=== PATIENT | male | born 1950 | race Caucasian/White ===

== ENCOUNTER 2021-06-13 08:54 | Day surgery (SDC) | payer MEDICARE, BC ==
[~2021-06-13 08:54] MED LIST: Acetaminophen 325 MG Tab PO SCH; Lidocaine 1%/Sod Bicarbonate in NS 8.4% 1 ML Syringe IDERM PRN; Morphine 8 MG, EPINEPHrine 0.3 MG, Cefuroxime 750 MG, Ketorolac 30 MG, Sodium Chloride ... PRN; Pregabalin 25 MG Cap PO SCH; Sodium Chloride 0.9% 10 ML Syringe FLUSH PRN; oxyCODONE ER 10 MG TAB.ER PO SCH
[2021-06-13] MEDS: Lactated Ringers 1,000 ML IV SCH ×2 (09:08→13:39)
[2021-06-13] MEDS ORDERED: Triamcinolone Acetonide 40 MG/ML 1 ML SDV ONE (10:03)
[2021-06-13] MEDS ORDERED: Bupivacaine 0.25% 10 ML SDV ONE (10:03)
[2021-06-13] MEDS ORDERED: Vancomycin 1 GM SDV ONE (10:03)
--- NOTE | 2021-06-13 10:31 | PCM.PREANE ---
Preanesthetic Assessment - Procedure Proposed Procedure: Left TKR - Anesthesia/Transfusion/Family Hx Anesthesia History: Prior Anesthesia Without Reaction Transfusion History: No Prior Transfusion(s) - Review of Systems General: No Symptoms Pulmonary: No Symptoms Cardiovascular: No Symptoms Gastrointestinal: No Symptoms Neurological: No Symptoms Other: Reports: None - Physical Assessment NPO Status Date: 06/12/21 NPO Status Time: 22:00 Height: 1.73 m Weight: 78.018 kg ASA Class: 2 Mental Status: Alert & Oriented x3 Airway Class: Mallampati = 2 Dentition: Reports: Implants (lower), Missing Tooth/Teeth (upper), Caries Thyro-Mental Finger Breadths: 3 Mouth Opening Finger Breadths: 3 ROM/Head Extension: Full Lungs: Clear to Auscultation, Normal Respiratory Effort Cardiovascular: Regular Rate, Regular Rhythm - Allergies Allergies/Adverse Reactions: Allergies Allergy/AdvReac Type Severity Reaction Status Date / Time No Known Allergies Allergy Verified 06/07/21 15:59 - Acknowledgements Anesthesia Type Planned: Spinal, Regional Block Pt an Appropriate Candidate for the Planned Anesthesia: Yes Alternatives and Risks of Anesthesia Discussed w Pt/Guardian: Yes Pt/Guardian Understands and Agrees with Anesthesia Plan: Yes PreAnesthesia Questionnaire HEENT History: Reports: Hard of Hearing Cardiovascular History: Reports: High Cholesterol Respiratory History: Reports: Sleep Apnea (not using CPAP currently) Musculoskeletal History: Reports: Arthritis Endocrine/Metabolic History: Reports: Diabetes, Type II Dermatologic History: Reports: Other (See Below) Other Dermatologic History: Impetigo - Past Surgical History GI Surgical History: Reports: Colonoscopy - SUBSTANCE USE Tobacco Use Status *Q: Never Tobacco User Recreational Drug Use History: No - HOME MEDS Home Medications: Home Meds Aspirin [Aspirin EC] 325 mg PO BID #60 tab 06/12/21 [Rx] Cholecalciferol (Vitamin D3) [Vitamin D] 1 tab PO DAILY 06/12/21 [History] Cyclobenzaprine [Flexeril] 10 mg PO BID PRN #20 tab 06/12/21 [Rx] Fish Oil/Preston-3 Fatty Acids [Fish Oil 1,000 MG] 1 cap PO DAILY 06/12/21 [History] Glucosam/Chond/Collagen/Hyalur [Glucosamine Chondroitin] 1 cap PO DAILY 06/12/21 [History] Multivitamin 1 tab PO DAILY 06/12/21 [History] Rosuvastatin [Crestor] 10 mg PO DAILY 06/12/21 [History] oxyCODONE 5 - 10 mg PO Q4H PRN #40 tab 06/12/21 [Rx] sitaGLIPtin Phos/Metformin HCl [Janumet Xr 100-1,000 mg Tablet] 1 tab PO BID 06/12/21 [History] - CURRENT (IN HOUSE) MEDS Current Meds: Current Medications Acetaminophen (Acetaminophen 325 Mg Tab) 975 mg PO ONETIME ASAF Stop: 06/13/21 16:00 Last Admin: 06/13/21 09:18 Dose: 975 mg Documented by: Morphine Sulfate 8 mg/Epinephrine HCl 0.3 mg/Cefuroxime Sodium 750 mg/Ketorolac Tromethamine 30 mg/Sodium Chloride 7.9 ml 0 mg .XX ASDIRECTED PRN PRN Reason: Pain Stop: 06/13/21 16:00 Lactated Ringer's (Ringers, Lactated) 1,000 mls @ 125 mls/hr IV ASDIRECTED ASAF Stop: 06/13/21 23:00 Last Admin: 06/13/21 09:08 Dose: 125 mls/hr Documented by: Lidocaine/Sodium Bicarbonate (Lidocaine 1%/Sod Bicarbonate In Ns 8.4% 1 Ml Syringe) 0.25 ml IDERM ONETIME PRN PRN Reason: Prior to IV Start Stop: 06/13/21 18:00 Oxycodone HCl (Oxycodone Er 10 Mg Tab.Er) 10 mg PO ONETIME ASAF Stop: 06/13/21 16:00 Last Admin: 06/13/21 09:18 Dose: 10 mg Documented by: Pregabalin (Pregabalin 25 Mg Cap) 50 mg PO ONETIME ASAF Stop: 06/13/21 16:00 Last Admin: 06/13/21 09:18 Dose: 50 mg Documented by: Sodium Chloride (Sodium Chloride 0.9% 10 Ml Syringe) 10 ml FLUSH ASDIRECTED PRN PRN Reason: Keep Vein Open Stop: 06/13/21 18:00 Discontinued Medications Bupivacaine HCl (Bupivacaine 0.25% 10 Ml Sdv) Confirm Administered Dose 10 ml .ROUTE .STK-MED ONE Stop: 06/13/21 10:04 Morphine Sulfate 8 mg/Epinephrine HCl 0.3 mg/Cefuroxime Sodium 750 mg/Ketorolac Tromethamine 30 mg/Sodium Chloride 7.9 ml 0 mg .XX ASDIRECTED PRN PRN Reason: Pain Tranexamic Acid (Tranexamic Acid 1,000 Mg/10 Ml Amp) Confirm Administered Dose 1,000 mg .ROUTE .STK-MED ONE Stop: 06/13/21 10:04 Triamcinolone Acetonide (Triamcinolone Acetonide 40 Mg/Ml 1 Ml Sdv) Confirm Administered Dose 80 mg .ROUTE .STK-MED ONE Stop: 06/13/21 10:04 Vancomycin HCl (Vancomycin 1 Gm Sdv) Confirm Administered Dose 1 gm .ROUTE .STK- MED ONE Stop: 06/13/21 10:04
[2021-06-13] MEDS ORDERED: Lidocaine 1% 4 ML ONE (10:44)
[2021-06-13] MEDS ORDERED: fentaNYL 100 MCG/2 ML SDV ONE (10:44)
[2021-06-13] MEDS ORDERED: Propofol 200 MG/20 ML SDV ONE (10:45)
[2021-06-13] MEDS ORDERED: ceFAZolin 1 GM Vial ONE (10:48)
[2021-06-13] MEDS ORDERED: Midazolam 1 MG/ML 2 ML SDV ONE (10:49)
[2021-06-13] MEDS ORDERED: Dexmedetomidine 200 MCG/2 ML SDV ONE (11:10)
[2021-06-13] MEDS ORDERED: Dexamethasone 4 MG/ML 5 ML MDV ONE (11:10)
[2021-06-13] MEDS ORDERED: Ropivacaine 0.5% 5 MG/ML 30 ML SDV ONE (11:21)
--- NOTE | 2021-06-13 11:47 | PCM.PRNOTE ---
- Free Text/Narrative Note: Postoperative regional pain control requested by surgeon. Pre-op Dx: Lt knee osteoarthritis. Post-op Rx: Total Lt knee arthroplasty. Procedure: Lt Adductor canal block with U/S guidance Requesting physician: Dr. Tanner Carcamo Risks and benefits discussed with the patient preoperatively including infection, bleeding, incomplete or failed block, possible nerve damage, local anesthetic toxicity. Permit signed. Patient after spinal anesthesia post surgery in PACU, stable , alert and awake. Time out performed. Right mid-thigh was prepped with Chloraprep x 1 and allowed to dry. Under aseptic technique, the left femoral artery and sartorius muscle were identified under ultrasound prior to needle insertion. 4" Stimuplex needle #21 G was inserted under US guidance. Under direct visualization of needle tip the injection of 0.5% Ropivacaine with mixed with 1:200k epinephrine, 40 mcg of Dexmedetomidine and 6 mg of Dexamethasone total of 30 mls in divided doses, maintaining negative aspiration was completed without problems. No local anesthetic toxicity was noted. Patient is awake, stable and tolerated the procedure well. Time: 13:05 - 13:10 Please see attached U/S pictures.
--- NOTE | 2021-06-13 14:34 | PCM.POSTAN ---
POST ANESTHESIA ASSESSMENT - MENTAL STATUS Mental Status: Alert, Oriented - VITAL SIGNS Vital Signs: Postop Vital Signs 127/79 56 94% 2L O2 10RR 97.7F - RESPIRATORY Respiratory Status: Respiratory Rate WNL, Airway Patent, O2 Saturation Stable - CARDIOVASCULAR CV Status: Pulse Rate WNL, Blood Pressure Stable - GASTROINTESTINAL GI Status: No Symptoms - PAIN Pain Score: 0 (post SAB) - POST OP HYDRATION Hydration Status: Adequate & Stable
--- NOTE | 2021-06-13 14:35 | PCM48HPAN ---
Post Anesthesia Note - EVALUATION WITHIN 48HRS OF ANESTHETIC Vital Signs in Normal Range: Yes Patient Participated in Evaluation: Yes Respiratory Function Stable: Yes Airway Patent: Yes Cardiovascular Function Stable: Yes Hydration Status Stable: Yes Pain Control Satisfactory: Yes Nausea and Vomiting Control Satisfactory: Yes Mental Status Recovered: Yes Vital Signs: Last Vital Signs Temp 97.7 F 06/13/21 14:08 Pulse 62 06/13/21 13:45 Resp 12 06/13/21 13:45 BP 141/62 H 06/13/21 14:08 Pulse Ox 96 06/13/21 13:45 - COMMENTS/OBSERVATIONS Free Text/Narrative:: Pt on [facility] floor doing extended recovery
--- NOTE | 2021-06-13 14:48 | CR ---
Left knee: AP and lateral views of the left knee were obtained. Comparison: Prior left knee CT exam of 05/29/21. Knee prosthesis is noted. Components are aligned. Patellar prosthesis is also seen. Soft tissue air is noted. No acute osseous abnormality is appreciated. Impression: 1. Satisfactory postop radiographic appearance of recently placed left knee prostheses. Diagnostic code #2
--- NOTE | 2021-06-28 08:27 | PCM.OPNOTE ---
- General Post-Op/Procedure Note Date of Surgery/Procedure: 06/13/21 Operative Procedure(s): left total knee arthroplasty Pre Op Diagnosis: left knee osteoarthrosis Post-Op Diagnosis: Same Anesthesia Technique: Local, MAC, Spinal Primary Surgeon: Tanner Iglesias Anesthesia Provider: Eddie Arriola Oil Drilling Engineer: Simona Gooden Oil Drilling Engineer: Sherrie Aparicio in mLs: 5 Complications: None Condition: Good Free Text/Narrative:: 03/28 9mm 32x10
--- NOTE | 2021-06-28 09:12 | OR ---
DATE OF OPERATION: 06/13/2021 SURGEON: Tanner Iglesias MD OPERATION PERFORMED: Left total knee arthroplasty. PREOPERATIVE DIAGNOSIS: Left knee osteoarthrosis. POSTOPERATIVE DIAGNOSIS: Left knee osteoarthrosis. ANESTHESIA: Local MAC with spinal. ANESTHESIA PROVIDER: Zayra Moody ASSISTANTS: Simona Gooden PA-C and Sherrie Aparicio LPN ESTIMATED BLOOD LOSS: Less than 5 mL. COMPLICATIONS: None. CONDITION: Stable. IMPLANTS: 1. [place] size 5 cemented PS femur. 2. Dilip size 5 cemented [place] tibial baseplate. 3. [place] size 5, 9 mm PS X3 polyethylene. 4. Dilip size 32 x 10 mm cemented asymmetric patella. DESCRIPTION OF PROCEDURE: The patient was identified in the preop holding area. Proper site was marked and identified by the surgeon. The patient was taken back to the operating theater where after adequate anesthesia, the patient's left lower extremity had a nonsterile tourniquet applied and it was sterilely prepped and draped in the usual sterile fashion. OR time-out was performed. The patient received 2 g IV Ancef . Leg james was then applied to the left lower extremity. At this time, the left lower extremity was exsanguinated. Tourniquet was insufflated to 250 mmHg . Standard anterior incision was made. Medial parapatellar arthrotomy was created. Deep fibers of the MCL were raised as well as anterior fat pad was resected. Attention was turned to the patella. Patella measured at 24 mm; it was resected to 14 mm for a 32 x 10 mm patella. Drill holes were then drilled. Attention was then turned to the femur. Two 4.0 pins were placed intra- incisionally for the [place] Jesus robotic array and then 2 more were placed on the tibia 3 fingerbreadths below the tibial tubercle. The [place] Jesus robotic arrays were placed on both the femur and the tibia then at this time as well as checkpoints on the femur and tibia. Hip center rotation was then obtained. The medial and lateral malleoli were marked. At this time, 40 points were obtained off the femur and the tibia for the Dilip Jesus robotic plan. The patient's knee was brought to full extension. Varus and valgus stresses were applied and then into 90 degrees of flexion with a curved osteotome. Varus and valgus stresses were applied. At this time, [employer] robotic plan was done to 19 mm gaps in both flexion and extension. Dilip Jesus robotic arm was then brought in. A straight saw blade was then used for the tibial cut, the anterior femoral cut, the anterior chamfer cut, and the posterior femoral cut. All bony fragments were removed. Saw blade was then switched out and the distal femoral cut as well as the posterior chamfer cut was completed. At this time, medial and lateral menisci were resected as well as any posterior osteophytes. A size 5 mm trial tibia was then placed, size 5 mm trial femur was placed, and a size 5, 9 mm polyethylene trial liner was placed. The patient's knee was brought to full extension and flexion. Varus and valgus stresses were applied, was found to be stable with no instability. No signs of liftoff or loosening were noted. At this time, box cut was completed on the femur. The pins were removed from the femur and the tibia as well as the arrays and the checkpoints. Cement was mixed on the back table. All cut surfaces were irrigated with pulse lavage irrigation with Ancef and then completely dried. Once the cement was ready, the [place] size 5 mm cemented [place] tibial base plate having been previously stamped and drilled, was then cemented in place on the tibia. The Dilip size 5 mm cemented femur was cemented into place. The patient had a [place] size 5, 9 mm polyethylene insert placed. The patient's knee was brought to full extension. Excess cement was removed. A [place] size 32 x 10 mm cemented asymmetric patella was then cemented into place. 1 L of pulse lavage irrigation with Ancef was irrigated through the knee along with 400 mL of Irrisept irrigation. Periarticular injection was completed. Topical tranexamic acid and vancomycin powder were applied. A #2 barbed suture was used for closure of the medial parapatellar arthrotomy in flexion. 2-0 Vicryl and Stratafix were used for subcutaneous closure. Prineo was used for cutaneous closure. The patient had a sterile soft dressing applied. The tibial holes were closed with nylon, and this was also covered with a sterile soft dressing. The patient had an AKIKO wrap applied and was sent to PACU in stable condition. The patient tolerated the procedure well. MMODAL /[id number]
--- NOTE | 2021-07-10 09:44 | OR ---
DATE OF OPERATION: 06/13/2021 SURGEON: Tanner Iglesias MD ADDENDUM: After left total knee arthroplasty was completed, the patient underwent an injection to the right knee with 2 mL of 40 mg Kenalog and 4 mL of 0.25% Marcaine under sterile technique. The patient tolerated this well and was sent to the PACU in stable condition. MMODAL /[id number]
== END 2021-06-13 18:02 | disposition home or self-care (01) ==
LOC: JD.SDS 08:54 → JD.MS 08:55 → JD.SDS 18:02
PROVIDERS: ATTEND Orthopaedic Surgery
DX: M17.0 Bilateral primary osteoarthritis of knee (principal); M25.762 Osteophyte, left knee; E11.9 Type 2 diabetes mellitus without complications; G47.33 Obstructive sleep apnea (adult) (pediatric); E78.2 Mixed hyperlipidemia; F17.210 Nicotine dependence, cigarettes, uncomplicated; Z79.899 Other long term (current) drug therapy; Z79.84 Long term (current) use of oral hypoglycemic drugs; Z98.890 Other specified postprocedural states; Z98.2 Presence of cerebrospinal fluid drainage device
CPT/HCPCS: 01402; 73560-26-LT; 73560-LT; 97110-GP; 97116-GP; 97161-GP; 99100; A9270-GY; C1713; C1776; J0690; J1100; J2250; J2704; J2795; J3010; J3301; J3370; J3490; J7120

== ENCOUNTER 2022-12-09 09:23 | Day surgery (SDC) | payer MEDICARE, BC ==
[~2022-12-09 09:23] MED LIST changes: +Lactated Ringers 1,000 ML IV SCH; +Sodium Chloride 0.9% 10 ML Syringe FLUSH SCH
[2022-12-09] MEDS ORDERED: HYDROmorphone 0.5 MG/0.5 ML Syringe IVPUSH PRN (10:12)
[2022-12-09] MEDS ORDERED: Ondansetron 4 MG/2 ML SDV IVPUSH PRN (10:12)
[2022-12-09] MEDS ORDERED: fentaNYL 100 MCG/2 ML SDV IVPUSH PRN (10:12)
[2022-12-09] MEDS ORDERED: Vancomycin 1 GM SDV ONE (10:21)
[2022-12-09] MEDS ORDERED: Tranexamic Acid 1,000 MG/10 ML Vial ONE (10:21)
[2022-12-09] MEDS ORDERED: Propofol 200 MG/20 ML SDV ONE (10:41)
[2022-12-09] MEDS ORDERED: fentaNYL 100 MCG/2 ML SDV ONE (10:43)
[2022-12-09] MEDS ORDERED: Midazolam 1 MG/ML 2 ML SDV ONE (10:43)
[2022-12-09] MEDS ORDERED: Lidocaine 1% 5 ML VIAL ONE (10:44)
[2022-12-09] MEDS ORDERED: Ropivacaine 0.5% 5 MG/ML 30 ML SDV ONE (11:02)
[2022-12-09] MEDS ORDERED: ceFAZolin 2 GM Vial ONE (11:54)
[2022-12-09] MEDS ORDERED: EPINEPHrine 1 MG/ML SDV ONE (13:08)
[2022-12-09] MEDS ORDERED: oxyCODONE 5 MG Tab PO PRN (16:16)
== END 2022-12-09 16:27 | disposition home or self-care (01) ==
LOC: JD.SDS 09:23
PROVIDERS: ATTEND Orthopaedic Surgery
DX: M17.11 Unilateral primary osteoarthritis, right knee (principal); E11.9 Type 2 diabetes mellitus without complications; N40.0 Benign prostatic hyperplasia without lower urinary tract symptoms; E78.00 Pure hypercholesterolemia, unspecified; G47.33 Obstructive sleep apnea (adult) (pediatric); Z79.899 Other long term (current) drug therapy; Z98.890 Other specified postprocedural states; Z87.891 Personal history of nicotine dependence; Z96.659 Presence of unspecified artificial knee joint
CPT/HCPCS: 0055T; 27447; 64447; 73560; 82947; 97116; 97161; A9270; C1713; C1776; J0171; J0690; J0697; J1885; J2250; J2270; J2704; J2795; J3010; J3370; J7120; 01402; 64450; J3490